=== PATIENT | female | born 1950 | race Caucasian/White ===

== ENCOUNTER 2019-05-27 19:55 | Inpatient (IN) | payer MEDICARE, MEDICAID ==
[~2019-05-27] VITALS: Ht 160 cm; Wt 108.6 kg
--- NOTE | ~2019-05-27 | CON ---
[place], [place] REPORT OF CONSULTATION NAME: ARIANA MARKS UNIT #: [id number] ROOM: 505 DOCTOR: SONIDO BENNETT MD BIRTHDATE: [birth year] DOS: 05/28/2019 GASTROENDOSCOPIC CONSULTATION REPORT HISTORY OF PRESENT ILLNESS: The patient is a 68-year-old with sensation of foreign body in the throat and since then has been persistent and we are suspecting that she may have esophageal foreign body. PAST MEDICAL HISTORY: Gastroesophageal reflux, obesity, hypertension, asthma, COPD, diabetes mellitus, and anxiety. PAST SURGICAL HISTORY: Cholecystectomy, tubal ligation, umbilical hernia repair and ankle repair. SOCIAL HISTORY: Passive smoker. Nonalcohol consumer. FAMILY HISTORY: Noncontributory. ALLERGIES: NEOSPORIN COMPONENTS. REVIEW OF SYSTEMS: HEENT: Denies double vision, blurred vision. RESPIRATORY: Denies shortness of breath. CARDIOVASCULAR: Denies acute chest pain. DIGESTIVE SYSTEM: No hematemesis, dysphagia. PHYSICAL EXAMINATION: VITAL SIGNS: Stable. HEENT: Benign. NECK: Supple, no thyromegaly, no cervical lymphadenopathy. CHEST: Symmetric anatomy, equal expansion. No wheeze, no rhonchi. HEART: Normal sinus rhythm, no gallop, no murmur. ABDOMEN: Soft, obese, no hepato-organomegaly. Bowel sounds present. EXTREMITIES: No cyanosis, no pedal edema. NEUROLOGIC: Alert, oriented to time, place, person. IMPRESSION: Dysphagia, suspected esophageal foreign body. PLAN AND DISCUSSION: Endoscopic evaluation. LABORATORY DATA: Reviewed. Records reviewed. OTHER ADJUNCTIVE DIAGNOSES: As outlined in paragraph of past medical history. [place], [place] REPORT OF CONSULTATION NAME: ARIANA MARKS UNIT #: [id number] ROOM: 505 DOCTOR: SONIDO BENNETT MD BIRTHDATE: [birth year] SONIDO BENNETT MD CM:CONSTR:REPORT OF CONSULTATION 1154 05/28/19 1525 interface
--- NOTE | ~2019-05-27 | EKG ---
[place], [place] ELECTROCARDIOGRAM REPORT NAME: ARIANA MARKS UNIT #: [id number] ROOM: 505 DOCTOR: EPIPHANY DRAFT REPORT BIRTHDATE: [birth year] [facility] Test Date: 2019-05-27 Test Time: 21:10:48 Pat Name: ARIANA MARKS Department: Room: 505 Gender: F Social Work Program Coordinator: Mery Hoyt : 1950 Requested By: MICHELLE MORENO Order Number: [id number] Reading MD: Erick Yoo MD Measurements Intervals [place] Rate: 106 P: -16 [place]: 132 QRS: -60 QRSD: 87 T: 54 QT: 359 QTc: 477 Interpretive Statements Sinus tachycardia Atrial premature complex Left anterior fascicular block Low voltage, precordial leads Consider anterior infarct Electronically Signed On 05-28-2019 13:40:39 PDT by Erick Yoo MD CM:EKGRPT:ELECTROCARDIOGRAM REPORT 09 1340 MICHELLE MORENO MD EPIPHANY DRAFT REPORT MICHELLE MORENO MD
--- NOTE | ~2019-05-27 | O ---
[place], [place] OPERATIVE NOTE [id number] UN[facility] #: [id number] ROOM: 505 DOCTOR: SABRINA SZYMANSKI,SONIDO BIRTHDATE: [birth year] DOS: GASTROENDOSCOPIC REPORT HISTORY OF PRESENT ILLNESS: The patient is a 68-year-old who has presented with a foreign body in esophagus. Sensation of dysphagia. PROCEDURE: Today's procedure part of investigation is panendoscopy plus esophageal foreign body removal from cervical esophagus, large piece of meat. PREMEDICATION: ____ intubation by Anesthesia. SCOPE: Olympus forwarding gastroscope Q10 video. REPORT: After putting the patient in left lateral position and application of lubricant to the scope, the scope was introduced. Thereafter, under direct visualization, advanced to cervical esophagus. Upper esophagus is impacted with foreign body and this was manipulated, agitated and eventually in one piece pulled out orally. The patient was rescoped advanced through the duodenum, which is patent. Gastritis of mild degree was seen. Benign upper esophageal stricture identified. However, this requires future dilation. The patient extubated, tolerated the procedure well. IMPRESSION: Upper esophageal stricture, status post foreign body entrapment and removal, status post EGD. PLAN AND DISCUSSION: Follow up as outpatient for future esophageal dilation. SONIDO BENNETT MD CM:OPRECORD:OPERATIVE NOTE 1312 [id number] SONIDO BENNETT MD 05/28/19 1348 interface
[2019-05-27 19:59] VITALS: BP 147/64
[2019-05-27 20:53] LABS: BASO % 0.3 % (0.0-1.0); EOS # 0.1 10*3/uL (0.0-0.4); EOS % 1.6 % (1.0-4.0); HEMATOCRIT 39.2 % (37.0-47.0); HEMOGLOBIN 12.2 g/dl (12.0-16.0); LYMPH # 2.1 10*3/uL (1.3-4.4); LYMPH % 27.7 % (27.0-41.0); MEAN CELL VOLUME 91.8 fl (81.0-99.0); MEAN CORPUSCULAR HGB 28.6 pg (27.0-31.0); MEAN CORPUSCULAR HGB CONC 31.1 g/dl (33.0-37.0); MEAN PLATELET VOLUME 10.3 fl (9.6-12.3); MONO # 0.4 10*3/uL (0.1-1.0); MONO % 5.1 % (3.0-9.0); NEUT # 4.8 10*3/uL (2.3-7.9); PLATELET COUNT AUTOMATED 231 10*3/uL (130-400); RED BLOOD COUNT 4.27 10*6/uL (4.10-5.10); WHITE BLOOD COUNT 7.4 10*3/uL (4.8-10.8)
[2019-05-27 21:10] LABS: ALKALINE PHOSPHATASE 81 U/L (45-117); BUN 21 mg/dl (7-24); CHLORIDE 101 mmol/L (98-107); CREATININE 1.46 mg/dL (0.55-1.02); POTASSIUM 4.2 mmol/L (3.5-5.1); SGOT/AST 26 IU/L (3-35); SGPT/ALT 30 U/L (12-78); SODIUM 137 mmol/L (136-145); TOTAL PROTEIN 7.2 gm/dL (6.4-8.2)
[2019-05-27 21:11] LABS: TROPONIN I < 0.015 ng/ml (<0.045)
[2019-05-27 23:19] VITALS: BP 137/81
--- NOTE | 2019-05-27 23:30 | NUR ---
REPORT RECIEVED FROM MUNOD BRYSON. INFORMED THAT ER PHYSICIAN WAS IN CONTACT WITH DR BENNETT WHO IS CONSULTED FOR FOREIGN BODY IN THE ESOPHAGUS.
--- NOTE | 2019-05-27 23:30 | NUR ---
A 68, admitted to 5E, under the services of ANGELICA Whiteside DO with a diagnosis of ESOPHAGEAL FOREIGN BODY. Chief complaint is ESOPHAGEAL FOREIGN BODY. Patient arrived via bed from ER. Monitor applied. Initial assessment completed. Vital signs taken and recorded. ANGELICA WHITESIDE DO notified of admission to the unit. Orders received. See assessment for past medical history, medications and allergies. Patient and/or family oriented to unit. [address] visitation policy reviewed. Clothing/patient valuable form completed. JULIETA MO
[2019-05-27] MEDS ORDERED: BUSPIRONE HCL10 MG PO (23:51)
[2019-05-27] MEDS ORDERED: TRINTELLIX20 MG PO (23:52)
[2019-05-27] MEDS ORDERED: LISINOPRIL-HCT1 EACH PO (23:52)
[2019-05-27] MEDS ORDERED: SIMVASTATIN40 MG PO (23:52)
[2019-05-27] MEDS ORDERED: VITAMIN D350000 UNIT PO (23:53)
[2019-05-27] MEDS ORDERED: PANTOPRAZOLE SO40 MG PO (23:53)
[2019-05-27] MEDS ORDERED: METFORMIN HYD1000 MG PO (23:53)
[2019-05-27] MEDS ORDERED: VICTOZA 3-PAK6 MG/ML SC (23:54)
[2019-05-27] MEDS ORDERED: VENTOLIN 02.5 MG/3 M INH (23:55)
[2019-05-28] VITALS (7 sets, daily range): BP systolic 109–145; BP diastolic 48–61
[2019-05-28 07:55] LABS: CHLORIDE 105 mmol/L (98-107); POTASSIUM 3.5 mmol/L (3.5-5.1); SODIUM 138 mmol/L (136-145)
[2019-05-28 08:06] LABS: ALKALINE PHOSPHATASE 70 U/L (45-117); BUN 20 mg/dl (7-24); CHOLESTEROL 132 mg/dL (<200); CREATININE 1.01 mg/dL (0.55-1.02); FREE T4 1.27 ng/dl (0.76-1.46); HDL CHOLESTEROL 51 mg/dl (40-60); LDL CHOLESTEROL 49 mg/dL (9-159); PHOSPHOROUS 3.7 mg/dL (2.5-4.9); SGOT/AST 22 IU/L (3-35); SGPT/ALT 29 U/L (12-78); TRIGLYCERIDES 160 mg/dl (<150); VLDL CHOLESTEROL 32 mg/dL (6-40)
[2019-05-28 09:11] LABS: BASO % 0.3 % (0.0-1.0); EOS # 0.1 10*3/uL (0.0-0.4); EOS % 0.9 % (1.0-4.0); HEMATOCRIT 38.2 % (37.0-47.0); LYMPH # 2.3 10*3/uL (1.3-4.4); LYMPH % 28.8 % (27.0-41.0); MEAN CELL VOLUME 89.3 fl (81.0-99.0); MEAN CORPUSCULAR HGB CONC 31.4 g/dl (33.0-37.0); MEAN PLATELET VOLUME 10.8 fl (9.6-12.3); MONO # 0.6 10*3/uL (0.1-1.0); MONO % 7.5 % (3.0-9.0); NEUT # 4.9 10*3/uL (2.3-7.9); NEUT % 62.2 % (47.0-73.0); PLATELET COUNT AUTOMATED 200 10*3/uL (130-400); RED BLOOD COUNT 4.28 10*6/uL (4.10-5.10); RED CELL DISTRI WIDTH 13.2 % (0-14.5); WHITE BLOOD COUNT 7.9 10*3/uL (4.8-10.8)
--- NOTE | 2019-05-28 15:38 | NUR ---
PT DISCHARGED HOME AT THIS TIME. [place] DISCONTINUED. DISCHARGE INSTRUCTIONS REVIEWED.
== END 2019-05-28 15:38 | disposition home or self-care (01) | DRG 393 ==
LOC: ED 19:55 → EDHOLD 22:46 → 5E 23:13
PROVIDERS: Emergency Medicine Emergency Medical Services; Internal Medicine; ADMIT Internal Medicine
PROC: 0DC18ZZ Extirpation of Matter from Upper Esophagus, Via Natural or Artificial Opening Endoscopic (ICD-10-PCS; principal; 2019-05-28)
DX: T18.128A Food in esophagus causing other injury, initial encounter (principal); R65.11 Systemic inflammatory response syndrome (SIRS) of non-infectious origin with acute organ dysfunction; N17.0 Acute kidney failure with tubular necrosis; Z68.41 Body mass index [BMI] 40.0-44.9, adult; E11.65 Type 2 diabetes mellitus with hyperglycemia; I10 Essential (primary) hypertension; E78.5 Hyperlipidemia, unspecified; J44.9 Chronic obstructive pulmonary disease, unspecified; M19.90 Unspecified osteoarthritis, unspecified site; K21.9 Gastro-esophageal reflux disease without esophagitis; E66.9 Obesity, unspecified; E11.40 Type 2 diabetes mellitus with diabetic neuropathy, unspecified; K22.2 Esophageal obstruction; F41.9 Anxiety disorder, unspecified; G47.33 Obstructive sleep apnea (adult) (pediatric); K29.70 Gastritis, unspecified, without bleeding; X58.XXXA Exposure to other specified factors, initial encounter; Y93.89 Activity, other specified; Y92.098 Other place in other non-institutional residence as the place of occurrence of the external cause; Y99.8 Other external cause status; Z79.4 Long term (current) use of insulin; Z88.8 Allergy status to other drugs, medicaments and biological substances; Z88.6 Allergy status to analgesic agent; Z90.49 Acquired absence of other specified parts of digestive tract; Z98.51 Tubal ligation status; Z87.891 Personal history of nicotine dependence; Z82.49 Family history of ischemic heart disease and other diseases of the circulatory system; Z80.8 Family history of malignant neoplasm of other organs or systems; Z83.79 Family history of other diseases of the digestive system; Z79.899 Other long term (current) drug therapy